=== PATIENT | male | born 1990 | race Caucasian/White ===

== ENCOUNTER 2016-06-24 17:16 | Emergency (ER) | payer OTHER ==
[~2016-06-24] VITALS: Ht 182.9 cm; Wt 80.7 kg
[2016-06-24 18:10] LABS: ABSOLUTE BASOPHIL COUNT 0 /CUMM (0.0-0.2); ABSOLUTE EOSINOPHIL COUNT 0 /CUMM (0.0-0.7); ABSOLUTE GRANULOCYTE CT 10.3 /CUMM (1.4-6.5); ABSOLUTE LYMPH COUNT 0.6 /CUMM (1.2-3.4); ABSOLUTE MONOCYTE COUNT 0.1 /CUMM (0.10-0.60); BASOPHIL % 0.2 % (0.0-2.0); EOSINOPHIL % 0.1 % (0-5); HEMATOCRIT 50.8 % (42-52); MEAN CORPUSCULAR HGB 29.7 PG (27.0-31.0); MEAN CORPUSCULAR HGB CONC 33.3 G/DL (33.0-37.0); MEAN PLATELET VOLUME 7.9 FL (7.4-10.4); PLATELET COUNT 326 /CUMM (130-400); RBC DISTRIBUTION WIDTH 12.4 % (11.5-14.5); RED BLOOD CELL CT 5.71 /CUMM (4.70-6.10); WHITE BLOOD CELL COUNT 11.1 /CUMM (4.8-10.8)
[2016-06-24 18:25] LABS: GRANULOCYTE % 93.3 % (42.2-75.2)
--- NOTE | 2016-06-24 19:57 | ED GI/GU/ABDOMINAL COMPLAINT ---
History of Present Illness General Chief Complaint: Nausea, Vomiting, Diarrhea Stated Complaint: +NVD, CHILLS Source: patient Exam Limitations: no limitations Vital Signs & Intake/Output Vital Signs & Intake/Output Vital Signs Date Time Temp Pulse Resp B/P Pulse O2 O2 Flow FiO2 Ox Delivery Rate 06/24 2258 96.8 73 18 122/73 98 06/244 97.6 60 20 114/60 Room Air 06/24 1750 96.9 65 18 124/79 99 Room Air ED Intake and Output 06/25 0000 06/24 1200 Intake Total 1000 Output Total Balance 1000 Intake, IV 1000 Patient 178 lb Weight Allergies Coded Allergies: No Known Allergies (06/24/16) Reconcile Medications Dicyclomine Hydrochloride (Bentyl) 10 MG CAPSULE 1 CAP PO TID abd pain Ondansetron (Zofran Odt) 4 MG TAB.RAPDIS 1 TAB SL TID nausea Triage Note: PT TO ED FOR N/V/D SINCE LAST NIGHT AFTER EATING "BAD BEEF AT MY AUNTS HOUSE" EXTREMELY DIFFICULT TO ASSESS PT IN TRIAGE DUE TO PT REFUSING TO REMOVE TOWEL FROM HEAD AND ONLY ANSWERING YES OR NO QUESTIONS. MOTHER WITH PT REPORTING PT HAS BEEN C/O VOMITING AND ABD PAIN SINCE LAST NIGHT. Triage Nurses Notes Reviewed? yes Onset: Abrupt Duration: day(s): (1), constant, continues in ED Timing: recent history Quality/Severity: moderate, sharpness, severe Location: generalized abdomen Radiation: no radiation Activities at Onset: none No Modifying Factors: none HPI: 25-year-old male comes into the emergency room with complaints of abdominal pain nausea vomiting and diarrhea. Generalized abdominal pain. Denies any blood in his stool. Sudden onset of symptoms this morning. Associated headache and lightheadedness. Nothing seems to make them better or worse. (ROHINI WINTERS) Past History Travel History Traveled to [place] past 21 day No Medical History Any Pertinent Medical History? see below for history Surgical History Surgical History: none Psychosocial History What is your primary language Barbadian Family History Hx Contributory? No (ROHINI WINTERS) Review of Systems Review of Systems Constitutional: Reports: no symptoms. EENTM: Reports: no symptoms. Respiratory: Reports: no symptoms. Cardiovascular: Reports: no symptoms. GI: Reports: see HPI. Genitourinary: Reports: see HPI. Musculoskeletal: Reports: no symptoms. Skin: Reports: no symptoms. Neurological/Psychological: Reports: no symptoms. Hematologic/Endocrine: Reports: no symptoms. Immunologic/Allergic: Reports: no symptoms. All Other Systems: Reviewed and Negative (ROHINI WINTERS) Physical Exam Physical Exam General Appearance: well developed/nourished, no apparent distress, alert, awake Head: atraumatic, normal appearance Eyes: Bilateral: normal appearance, EOMI. Ears, Nose, Throat, Mouth: hearing grossly normal, moist mucous membrane Neck: normal inspection, full range of motion Respiratory: normal breath sounds, no respiratory distress Cardiovascular: regular rate/rhythm Gastrointestinal: soft, non-tender Back: normal inspection Extremities: normal range of motion Neurologic/Psych: awake, alert, oriented x 3, normal gait, normal mood/affect Skin: intact, normal color Core Measures ACS in differential dx? No Severe Sepsis Present: No Septic Shock Present: No (ROHINI WINTERS) Progress Differential Diagnosis: AAA, AMI, appendicitis, biliary colic, bowel obstruction , colon cancer, cholecystitis, diverticulitis, gastritis, hepatitis, inflamm bowel dis, pancreatitis, prostatitis, peptic ulcer, PUD/GERD, perforated viscous , pyelonephritis, SBO, STD, testicular torsion, ureterolithiasis, urinary retention, urethritis, UTI/pyelo Plan of Care: Orders Procedure Date/time Status Add-on Test (ER Only) 06/24 195 Active LIPASE 06/24 1800 Complete AMYLASE 06/24 1800 Complete COMPREHENSIVE METABOLIC PANEL 06/24 174 Complete CBC WITHOUT DIFFERENTIAL 06/24 1747 Complete Laboratory Tests 06/24/16 1800: Anion Gap 15, Estimated GFR > 60, BUN/Creatinine Ratio 17.5, Glucose 129 H, Calcium 10.0, Total Bilirubin 0.7, AST 22, ALT 29, Alkaline Phosphatase 78, Total Protein 8.2, Albumin 5.0, Globulin 3.2, Albumin/Globulin Ratio 1.6, Amylase 46, Lipase 48, CBC w Diff NO MAN DIFF REQ, RBC 5.71, MCV 89.0, MCH 29.7, RDW 12.4, MPV 7.9, Gran % 93.3 H, Lymphocytes % 5.6 L, Monocytes % 0.8 L, Eosinophils % 0.1, Basophils % 0.2, Absolute Granulocytes 10.3 H, Absolute Lymphocytes 0.6 L, Absolute Monocytes 0.1 L, Absolute Eosinophils 0, Absolute Basophils 0, PUBS MCHC 33.3 Diagnostic Imaging: Viewed by Me: CT Scan. Discussed w/RAD: CT Scan. Radiology Impression: EXAM TYPE: CAT - CT ABD & PELVIS W/O IV CONTRAS EXAMINATION: CT ABDOMEN AND PELVIS WITHOUT CONTRAST CLINICAL INFORMATION: Abdominal pain. COMPARISON: None. TECHNIQUE: Multidetector volumetric imaging was performed from the superior aspect of the liver through the pubic symphysis. Sagittal and coronal reformatted images were obtained on the technologist's workstation. DLP: 289 mGy-cm. FINDINGS: Limited evaluation of the solid abdominal viscera in the absence of intravenous contrast. LUNG BASES: The visualized lung bases are unremarkable. LIVER, GALLBLADDER, AND BILIARY TREE: The liver is normal in size, shape, and attenuation. No contour deforming hepatic lesion or biliary ductal dilatation is present. The gallbladder is unremarkable with no evidence of radiopaque gallstones, gallbladder wall thickening, or obvious pericholecystic inflammatory changes. PANCREAS: Unremarkable. SPLEEN: Unremarkable. ADRENAL GLANDS: Unremarkable. KIDNEYS AND URETERS: The kidneys are normal in size, shape and contour. No contour deforming renal lesions are identified. No renal or ureteral stones are identified and there is no hydroureteronephrosis of either kidney or renal collecting system BLADDER: Unremarkable. GASTROINTESTINAL TRACT: Normal anatomic orientation of the stomach relative to the duodenum. Normal caliber of abdominal and pelvic bowel loops, without evidence of obstruction or ileus. No circumferential bowel wall thickening with surrounding inflammatory changes to suggest an underlying infectious or inflammatory enterocolitis. There are postsurgical changes along the base of the cecum, likely related to prior appendectomy. No organizing intra -abdominal fluid collections or free intraperitoneal air. ABDOMINAL WALL: No significant hernia is appreciated. LYMPH NODES: No significant abdominal or pelvic adenopathy. VASCULAR: Normal course and caliber of the abdominal aorta and its branching vessels, without aneurysmal dilatation. Limited evaluation for vascular patency in the absence of intravenous contrast. PELVIC VISCERA: Unremarkable. OSSEOUS STRUCTURES: No acute osseous abnormality. Normal alignment of the imaged thoracolumbar spine. Of note, there are moderate degenerative changes of the lumbosacral spine at the lumbosacral junction with vacuum disc phenomenon identified. Also noted is bilateral pars interarticularis defects at L5. There is no significant spondylolisthesis of L5 on S1. IMPRESSION: 1. No acute findings within the abdomen or pelvis to explain patient symptomatology. 2. Incidental note is made of bilateral pars interarticularis defects at L5. 3. Postsurgical changes along the base of the cecum, likely related to prior appendectomy. DICTATED BY: YAMILET LUA MD Initial ED EKG: none (ROHINI WINTERS) Departure Departure Disposition: HOME OR SELF CARE Condition: Stable Clinical Impression Primary Impression: Gastroenteritis Referrals: PATIENT HAS NO PRIMARY CARE DR (PCP/Family) Additional Instructions: Take Bentyl as prescribed. Take Zofran ODT as prescribed. Rest. Drink plenty of fluids. Return if any other concerns worsening symptoms. Please go over all results of today's visit with your primary care doctor. Contact your primary care doctor to let them know you were here in the emergency room. There may be nonspecific findings which may not be related to your visit today here in the emergency room but may require further evaluation and chronic monitoring by your primary care doctor. If you had a laceration today the chance of foreign body always remains. You should follow-up with your primary care doctor for recheck in 3-5 days for a wound check. If you had an x-ray done there is a chance that a fracture could have been missed on initial read and you should follow-up with your primary care doctor for repeat x-rays if symptoms persist. If your blood pressure was elevated here in the emergency room please have rechecked by her primary care doctor within the next 48 hours by your primary care doctor. If you were prescribed a narcotic here in the emergency room or any type of controlled substances you're not allowed to drive while taking this medication or operate any type of heavy machinery. Narcotics can make you feel lightheaded dizziness nausea and can cause constipation. You may need to pickle solution maker a stool softener. Thank you for choosing [facility] emergency room. Please return to the emergency room immediately if you have any other concerns worsening of symptoms. Departure Forms: Customer Survey General Discharge Information Prescriptions: Current Visit Scripts Dicyclomine Hydrochloride (Bentyl) 1 CAP PO TID #30 CAP Ondansetron (Zofran Odt) 1 TAB SL TID #10 TAB (ROHINI WINTERS) PA/STOCK BUYER Co-Sign Statement Statement: ED Attending supervision documentation- [] I saw and evaluated the patient. I have also reviewed all the pertinent lab results and diagnostic results. I agree with the findings and the plan of care as documented in the PA's/STOCK BUYER's documentation. [x] I have reviewed the ED Record and agree with the PA's/STOCK BUYER's documentation. [] Additions or exceptions (if any) to the PAs/STOCK BUYER's note and plan are summarized below: [] (YURI PEDRO,NELL Tapia)
--- NOTE | 2016-06-24 21:12 | CT SCAN REPORT ---
EXAMINATION: CT ABDOMEN AND PELVIS WITHOUT CONTRAST CLINICAL INFORMATION: Abdominal pain. COMPARISON: None. TECHNIQUE: Multidetector volumetric imaging was performed from the superior aspect of the liver through the pubic symphysis. Sagittal and coronal reformatted images were obtained on the technologist's workstation. DLP: 289 mGy-cm. FINDINGS: Limited evaluation of the solid abdominal viscera in the absence of intravenous contrast. LUNG BASES: The visualized lung bases are unremarkable. LIVER, GALLBLADDER, AND BILIARY TREE: The liver is normal in size, shape, and attenuation. No contour deforming hepatic lesion or biliary ductal dilatation is present. The gallbladder is unremarkable with no evidence of radiopaque gallstones, gallbladder wall thickening, or obvious pericholecystic inflammatory changes. PANCREAS: Unremarkable. SPLEEN: Unremarkable. ADRENAL GLANDS: Unremarkable. KIDNEYS AND URETERS: The kidneys are normal in size, shape and contour. No contour deforming renal lesions are identified. No renal or ureteral stones are identified and there is no hydroureteronephrosis of either kidney or renal collecting system BLADDER: Unremarkable. GASTROINTESTINAL TRACT: Normal anatomic orientation of the stomach relative to the duodenum. Normal caliber of abdominal and pelvic bowel loops, without evidence of obstruction or ileus. No circumferential bowel wall thickening with surrounding inflammatory changes to suggest an underlying infectious or inflammatory enterocolitis. There are postsurgical changes along the base of the cecum, likely related to prior appendectomy. No organizing intra-abdominal fluid collections or free intraperitoneal air. ABDOMINAL WALL: No significant hernia is appreciated. LYMPH NODES: No significant abdominal or pelvic adenopathy. VASCULAR: Normal course and caliber of the abdominal aorta and its branching vessels, without aneurysmal dilatation. Limited evaluation for vascular patency in the absence of intravenous contrast. PELVIC VISCERA: Unremarkable. OSSEOUS STRUCTURES: No acute osseous abnormality. Normal alignment of the imaged thoracolumbar spine. Of note, there are moderate degenerative changes of the lumbosacral spine at the lumbosacral junction with vacuum disc phenomenon identified. Also noted is bilateral pars interarticularis defects at L5. There is no significant spondylolisthesis of L5 on S1. IMPRESSION: 1. No acute findings within the abdomen or pelvis to explain patient symptomatology. 2. Incidental note is made of bilateral pars interarticularis defects at L5. 3. Postsurgical changes along the base of the cecum, likely related to prior appendectomy.
[2016-06-24] MEDS ORDERED: BENTYL10 M1 PO (22:21)
[2016-06-24] MEDS ORDERED: ZOFRAN ODT4 M1 SL (22:21)
[2016-06-24 22:58] VITALS: BP 122/73
== END 2016-06-24 22:59 ==
LOC: ERH 17:16
PROVIDERS: Emergency Medicine
DX: K52.9 Noninfective gastroenteritis and colitis, unspecified (principal)
CPT/HCPCS: 74176; 96372; 96374; 96375; J0500; J1885; J2405